=== PATIENT | female | born 1975 | race Caucasian/White ===

== ENCOUNTER 2020-04-02 22:47 | Emergency (ER) | payer OTHER ==
[~2020-04-02 22:47] MED LIST: BENAZEPRIL-HCT1 EAC1 PO; FLONASE ALLER15.8 ML; NORCO 5-325 TA1 EACH PO; NORVASC5 MG PO; SINGULAIR10 MG PO; SYMBICORT 16010.2 GM INH; VITAMIN D250000 UNIT PO
[2020-04-02 23:25] LABS: BASOPHIL 0.5 % (0-2); EOSINOPHIL 1.5 % (0-5); HCT 37.1 % (37.0-47.0); HGB 12.4 g/dl (12.5-16.0); LYMPHOCYTE 26.8 % (15-48); MCH 30.7 pg (25.0-31.0); MCHC 33.4 g/dL (32.0-36.0); MCV 91.8 fL (78.0-100.0); MONOCYTE 5.1 % (0-12); MPV 10.9 fL (6.0-9.5); NEUTROPHIL 65.5 % (41-80); NRBC 0; PLT 225 K/uL (150-400); RBC 4.04 M/uL (4.20-5.40); RDW 12.8 % (11.5-14.0); WBC 10.1 K/uL (4.0-10.5)
[2020-04-02 23:30] LABS: INR 1.04 (0.9-1.2); PROTHROMBIN TIME 12.9 SECONDS (11.4-13.6); PTT 29.4 SECONDS (22.2-34.7)
[2020-04-02 23:57] LABS: ALBUMIN 3.1 g/dL (3.4-5.0); BILIRUBIN - TOTAL 0.5 mg/dL (0.2-1.0); CREATININE 0.79 mg/dL (0.51-0.95); GLOBULIN (CALCULATION) 4.3 g/dL; PHOSPHORUS 4.2 mg/dL (2.6-4.7); POTASSIUM 3.8 mmol/L (3.5-5.1); TOTAL PROTEIN 7.4 g/dL (6.4-8.2)
== END 2020-04-03 02:28 | disposition home or self-care (01) ==
LOC: FER 22:47
PROVIDERS: Emergency Medicine Emergency Medical Services
DX: R07.89 Other chest pain (principal); R42 Dizziness and giddiness; I25.2 Old myocardial infarction; Z95.5 Presence of coronary angioplasty implant and graft; Z87.19 Personal history of other diseases of the digestive system
CPT/HCPCS: 36415; 71045; 80053; 83036; 83735; 84100; 84439; 84443; 84484; 85025; 85610; 85730; 93005; J7120